=== PATIENT | male | born 1935 | race Caucasian/White ===

== ENCOUNTER 2019-12-13 12:09 | Inpatient (IN) | payer MEDICARE, MEDICAID, SELFPAY ==
[2019-12-13] VITALS (15 sets, daily range): BP systolic 67–107; BP diastolic 40–87; PULSE 75–95; RESP 17–24; TEMP 36.4–37.2; O2SAT 92–99
--- NOTE | ~2019-12-13 | XR_ITS ---
EXAMINATION: XR chest 1V portable EXAM DATE: 12/13/2019 13:50 INDICATION: Hypotension, weakness. TECHNIQUE: Portable AP frontal chest x-ray was obtained. Comparison is made to prior examination from 01/27/2018. FINDINGS: Sternotomy wires are present without findings to suggest sternal dehiscence. The lungs are clear. There are no pleural effusions. There is pulmonary vascular congestion. Cardiac silhouette i s prominent but magnified on this AP technique. There is no pneumothorax suspected. There is aorti c arteriosclerosis. There are bony degenerative changes. IMPRESSION: Pulmonary vascular congestion. Reviewed, dictated and finalized at location A.
--- NOTE | 2019-12-13 12:24 | ECG_ITS ---
Measurements Intervals [place] Rate: 96 P: 61 LA: 230 QRS: 59 QRSD: 88 T: 52 QT: 371 QTc: 469 Interpretive Statements SINUS RHYTHM WITH FIRST DEGREE AV BLOCK BASELINE ARTIFACT- I, II, III, AVR, AVL, AVF, V1-V2, V5-V6 ABNORMAL ECG Electronically Signed On 12-13-2019 14:09:46 CDT by Brenden Linda D.O.
--- NOTE | 2019-12-13 12:30 | PC.NURSE ---
PER LEVI CAST, STAFF IS TO STOP ALL INTERACTION WITH PT UNTIL ERP AL CAN SEE PT.
--- NOTE | 2019-12-13 12:53 | PC.NURSE ---
KATIUSKA NOT SENT FROM [facility]. CALLED FACILITY AT THIS TIME AND SPOKE WITH DEANDRE WHO STATES THAT PT IS ALLERGIC TO MORPHINE.
[2019-12-13] MEDS: HALOPERIDOL LACTATE 5 MG/ML VIAL 2 MG IM (12:56)
--- NOTE | 2019-12-13 13:06 | ED.GENADULT ---
HPI - General Adult General Chief complaint: Weakness Stated complaint: Lethargic, cellulitis bilateral legs Time Seen by Provider: 12/13/19 12:21 History of Present Illness HPI narrative: Patient is a 84 y/o male sent from [place] for right leg redness. It's uncertain how long it has been present. There is no alleviating or exacerbating factor. Patient is hard of hearing and poor historian. He admits that he has right leg pain but he can not elaborate on more details. Related Data Home Medications Medication Instructions Recorded Confirmed acetaminophen 1,000 mg PO TID PRN 04/09/19 atorvastatin 40 mg DAILY 04/09/19 buspirone 5 mg DAILY 04/09/19 buspirone 10 mg HS 04/09/19 donepezil 10 mg HS 04/09/19 metoprolol succinate 25 mg PO DAILY 04/09/19 mirtazapine 7.5 mg DAILY 04/09/19 omeprazole 20 mg PO DAILY 04/09/19 ranolazine 500 mg PO BID 04/09/19 sertraline 25 mg DAILY 04/09/19 sertraline 50 mg DAILY 04/09/19 sucralfate [Carafate] 10 ml AC 04/09/19 Lactobacillus acidophilus 10 mg PO DAILY 12/13/19 albuterol sulfate [ProAir HFA] 1 inh INHALATION QID 12/13/19 ciprofloxacin HCl 500 mg PO Q12H 12/13/19 hydrocortisone 1 applic TOPICAL BID PRN 12/13/19 pantoprazole 40 mg PO DAILY 12/13/19 terbinafine HCl 1 applic TOPICAL BID 12/13/19 tramadol 50 mg PO Q6H PRN 12/13/19 Allergies Allergy/AdvReac Type Severity Reaction Status Date / Time morphine Allergy Unknown Palpitation Verified 12/13/19 12:54 s Review of Systems Review of Systems: ROS unobtainable: Yes unobtainable due to mental status PMFSH Social History Social History Gender identity (if verbalized by the patient): Male Exam Const: General: no acute distress and well developed Orientation/consciousness: oriented to person and confusion HENMT: Head: normocephalic Ears: external ears normal General nose exam: Normal external nose present Eyes: General: appearance normal, both eyes and all related structures Conjunctivae: conjunctivae normal Neck: Neck: normal visual inspection and full ROM Chest: Chest palpation & inspection: normal inspection of the chest and no tenderness Resp: Effort & Inspection: normal respiratory effort Auscultation: clear to auscultation bilaterally Cardio: Rate: regular rate Rhythm: regular rhythm GI: GI Palp: No abdominal tenderness and Yes Soft to palpation Skin: General skin exam: turgor normal and erythema (both legs, right side worse) Neuro: General: oriented to person and oriented to time Cranial nerves: Yes hard of hearing Cognition (Neuro): abnormal cognition Extrem: General: normal to inspection, full ROM and no pedal edema Psych: Appearance: grossly normal Mental Status: mental status grossly normal Affect: normal affect Course Reevaluation(s) Reevaluation #1: Discussed with ex Shelton Sanders, who is POA. She confirms DNR status and does not want any aggressive treatment such as central line and pressor. Date: 12/13/19 Time: 14:33 Consultations Consultation #1: Discussed with GRAIN ELEVATOR WORKER Brigitte, who agrees to admit to Dr. Barajas. Date: 12/13/19 Time: 14:10 Vital Signs Vital signs: Vital Signs Temperature 37.2 C 12/13/19 12:15 Pulse Rate 94 12/13/19 12:15 Respiratory Rate 18 12/13/19 12:15 Blood Pressure 67/40 L 12/13/19 12:15 Pulse Oximetry 92 12/13/19 12:15 Temperature 37.2 C 12/13/19 12:15 Pulse Rate 90 12/13/19 16:45 Respiratory Rate 24 H 12/13/19 16:45 Blood Pressure 98/62 L 12/13/19 16:45 Pulse Oximetry 98 12/13/19 16:45 Medical Decision Making Vital Signs Vital Signs: Vital Signs Temperature 37.2 C 12/13/19 12:15 Pulse Rate 94 12/13/19 12:15 Respiratory Rate 18 12/13/19 12:15 Blood Pressure 67/40 L 12/13/19 12:15 Pulse Oximetry 92 12/13/19 12:15 Temperature 37.2 C 12/13/19 12:15 Pulse Rate 90 12/13/19 16:45 Respiratory Rate 24 H 12/13/19 16:45 Blood Pressure
[2019-12-13 13:09] LABS: Basophils Percent Auto 0.1 % (0.2-1.2); Hematocrit 32.7 % (42.0-52.0); Hemoglobin 10.8 g/dL (14.0-18.0); Immature Granulocyte Absolute 0.14 K/mm3 (0.00-0.031); Immature Granulocyte Percent A 0.8 % (0-0.5); Lymphocytes Absolute Auto 0.61 K/mm3 (0.9-3.2); Lymphocytes Percent Auto 3.7 % (18.3-44.2); Mean Corpuscular Hemoglobin 28.4 pg (26-34); Mean Corpuscular Volume 86.1 fl (80-100); Mean Platelet Volume 9.5 fl (7.4-10.4); Monocytes Absolute Auto 1.3 K/mm3 (0.1-0.6); Monocytes Percent Auto 7.5 % (2.6-8.5); Neutrophils Absolute Auto 14.7 K/mm3 (1.3-6.7); Neutrophils Percent Auto 87.9 % (45.5-73.1); Platelet Count Result 276 k/mm3 (150-375); Red Cell Distribution Width 13.3 % (11.5-14.5); White Blood Count 16.7 K/mm3 (4.5-10.0)
[2019-12-13 13:21] LABS: Lactic Acid Reflex 2.7 mmol/L (0.7-2.1)
[2019-12-13 13:22] LABS: Alanine Aminotransferase 16 U/L (4-50); Albumin Level 3.2 g/dL (3.5-5.1); Alkaline Phosphatase 115 U/L (38-126); Aspartate Amino Transferase 27 U/L (17-59); Bilirubin,Total 0.8 mg/dL (0.2-1.3); Blood Urea Nitrogen 21 mg/dL (9-20); Calcium 8.4 mg/dL (8.4-10.2); Carbon Dioxide 20 mmol/L (22-30); Chloride 104 mmol/L (98-107); Estimated CRCL calculation 45 ml/min; Estimated Glomerular Filt Rate > 60; Glucose 116 mg/dL (75-110); Sodium 133 mmol/L (137-145)
--- NOTE | 2019-12-13 13:36 | PC.NURSE ---
ATTEMPTED TO PLACE SECOND IV, PT AGGRESSIVE AGAIN, SWINGING AT RN. UNSUCCESSFUL.
--- NOTE | 2019-12-13 13:37 | PC.NURSE ---
PT RECIEVED 1L NS FROM EMS, ERP AL STILL WANTS 2400 ML BOLUS.
--- NOTE | 2019-12-13 14:22 | PC.NURSE ---
PT O2 SATURATION NOTED TO BE 86% WHILEE SLEEPING, PLACED ON 2L O2 VIA NC. INCREASED O2 SATURATION TO 94.
[2019-12-13] MEDS: ERTAPENEM 1 GM/NS 50 ML 1 GM/50 ML BAG IVPB (14:24)
--- NOTE | 2019-12-13 14:31 | PC.NURSE ---
SPOKE W/ PT EXWIFE WHO MAKES PT'S MEDICAL DECISIONS, AND IS LISTED PT'S FAMILY CONTACT. ERP SPEAKING W/ PT NOW ABOUT TREATMENT OPTIONS. JOB DEVELOPER FOR [employer] KATHIA AWARE OF PT STATUS AND THAT PT HAS LOW BP AND MAY GET CENTRAL LINE DEPENDING ON WHAT FAMILY DECIDES. AWAITING ORDERS.
[2019-12-13 14:39] LABS: Add Urine Microscopic? NO; Appearance Urine Clear (Clear); Bilirubin Urine Negative (Negative); Blood Urine Negative (Negative); Color Urine Yellow (Yellow); Glucose Urine UA Negative (Negative); Ketones Urine Negative (Negative); Leukocyte Esterase Ur Negative LEU/UL (Negative); Nitrate Urine Negative (Negative); Protein Urine Negative (Negative); Specific Grav Ur 1.013 (1.001-1.035); Urobilinogen Urine Negative mg/dL (<2.0)
--- NOTE | 2019-12-13 14:53 | PC.NURSE ---
PER GAMAL MELENDEZ HE HAS SPOKEN TO FAMILY, MS COUCH, STATES THAT DURING THEIR CONVERSATION SHE DECIDED THAT SHE WANTS ONLY COMFORT FOCUSED TREATMENT AND DOES NOT WANT A CENTRAL LINE PLACED. PER GAMAL MELENDEZ PT CLEARED TO GO TO ICU. ICT SUPPORT TECHNICIANS KATHIA ALEMAN.
[2019-12-13 16:07] LABS: Reflex Lactic Acid Yes or No Add Lactic
--- NOTE | 2019-12-13 17:30 | PC.NURSE ---
This patient, Micah Morrison, was admitted to Intensive Care Unit-5. Patient/family oriented to hospital policies and general routines including ID bracelet, bed and alarms, visiting hours, pain management, procedures, bathroom and other care routines, personal items, smoking policy, room service/diet, and visiting hours. Valuables list has been completed. Information on how to activate the Rapid Response Team has been discussed. Patient/Family are encouraged to report perceived risks to care and to ask questions if they do not understand what they are told or what they should do.
--- NOTE | 2019-12-13 18:27 | PM.IMHP ---
H&P: HPI History of Present Illness Chief complaint: Sepsis/right leg cellulitis Narrative: Micah Morrison is a 84 year old male Who is from [facility]. The patient has a history of dementia. He also looks like he has chronic venous stasis with ulcers. The patient has become more lethargic recently and his legs have become more red. according to the EMS record the patient has been picking at his legs and they started to drain. patient has chronic venous stasis ulcers. Patient's blood pressures were low when he came to the emergency room 67/40, 72/51, 69/56, And72/43. patient is septic. He was started on vancomycin and Primaxin. Although he is not diabetic his blood sugars are elevated. Which prompted the antibiotic choice as mentioned above. The patient is a DNR DNI and the power of civil litigation attorney did not want any vasopressors. The patient was given Haldol, Ativan, lactated Ringer's, vancomycin, and Primaxin. The patient is being admitted to the ICU as IMU overflow and has been screened for COVID 19. Lactic acid is noted to be 2.7. Potassium is low at 3.2. Date of service 12/13/2019 Review of Systems Review of Systems: All systems reviewed & are unremarkable except as noted in HPI and below Constitutional: Constitutional: Reports as per HPI and Reports no additional constitutional complaints Eyes: Eyes: Reports as per HPI and Reports no additional eye complaints ENT: Reports system reviewed and no additional complaints, except as documented and Reports Normal hearing present Cardiovascular: Cardiovascular: Reports no additional cardiovascular complaints Respiratory: Respiratory: Reports no additional respiratory complaints and Reports no additional respiratory complaints Gastrointestinal: Gastrointestinal: Reports as per HPI and Reports no additional gastrointestinal complaints Musculoskeletal: Musculoskeletal: Reports no additional musculoskeletal complaints Integumentary/Breasts: Skin/Breast: Reports system reviewed and no additional complaints, except as docu and Reports as per HPI Neurologic: Reports system reviewed and no additional complaints, except as documented, Reports as per HPI and Reports Normal hearing present Psychiatric: Psychiatric: Reports no additional psychiatric complaints and Reports as per HPI Endocrine: Endocrine: Reports no additional endocrine complaints Hematologic/Lymphatic: Hematologic/Lymphatic: Reports no additional hematologic/lymphatic complaints Allergic/Immunologic: Allergic/Immunologic: Reports no additional allergic/immunologic complaints [facility] Past Medical History Medical History (Updated 12/13/19 @ 18:42 by Brigitte Martines NP) Anemia Anxiety and depression CAD (coronary artery disease) bypass surgery 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 Social History Social History (Updated 12/13/19 @ 18:47 by Brigitte Martines NP) Social History: According to the records the patient was a former smoker he resides at [facility]. Family member stated that the patient is a modified code with DNI. His living well as confusing as it is marked attempt resuscitation CPR but then is also marked as comfort measure treatment. Power civil litigation attorney was contacted per ICU nursing building insulation supervisor and the power civil litigation attorney stated that he is a modified code with a DNI and that she would not allow central line or vasopressors. Savana lomax is noted to be the emergency nascar pit crew person. Smoking status: Never smoker Gender identity (if verbalized by the yesenia
[2019-12-13] MEDS: SODIUM CHLORIDE 0.9% IV 1,000 ML 125 ML IV CONT (20:08)
[2019-12-13] MEDS: ALBUTEROL SULFATE (*SP) INHALER 1 PUFF (20:52)
[2019-12-13] MEDS: ALBUTEROL SULFATE (*SP) AEROSOL 1 PUFF INHALATION (20:53)
[2019-12-14] VITALS (15 sets, daily range): BP systolic 92–140; BP diastolic 33–76; PULSE 69–91; RESP 16–20; TEMP 35.7–37; O2SAT 93–99
[2019-12-14 00:11] LABS: SARS-CoV-2 RNA PCR Negative
--- NOTE | 2019-12-14 02:09 | PC.NURSE ---
Report given to Sadie KEE. Patient to 211. All belongings gathered.
[2019-12-14 04:52] LABS: Basophils Percent Auto 0.2 % (0.2-1.2); Eosinophils Percent Auto 0.4 % (0-4.4); Hematocrit 32.5 % (42.0-52.0); Hemoglobin 10.5 g/dL (14.0-18.0); Immature Granulocyte Absolute 0.06 K/mm3 (0.00-0.031); Immature Granulocyte Percent A 0.5 % (0-0.5); Lymphocytes Absolute Auto 1.21 K/mm3 (0.9-3.2); Lymphocytes Percent Auto 10.7 % (18.3-44.2); Mean Corpuscular HGB Conc 32.3 g/dl (32-36); Mean Corpuscular Hemoglobin 28.2 pg (26-34); Mean Corpuscular Volume 87.1 fl (80-100); Mean Platelet Volume 9.3 fl (7.4-10.4); Monocytes Absolute Auto 0.9 K/mm3 (0.1-0.6); Monocytes Percent Auto 8.3 % (2.6-8.5); Neutrophils Percent Auto 79.9 % (45.5-73.1); Platelet Count Result 269 k/mm3 (150-375); Red Blood Count 3.73 M/mm3 (4.6-6.20); Red Cell Distribution Width 13.2 % (11.5-14.5); White Blood Count 11.3 K/mm3 (4.5-10.0)
[2019-12-14 05:07] LABS: Blood Urea Nitrogen 15 mg/dL (9-20); Calcium 8.6 mg/dL (8.4-10.2); Carbon Dioxide 24 mmol/L (22-30); Chloride 107 mmol/L (98-107); Estimated CRCL calculation 55 ml/min; Estimated Glomerular Filt Rate > 60; Glucose 88 mg/dL (75-110); Potassium 3.7 mmol/L (3.4-5.0); Sodium 136 mmol/L (137-145)
--- NOTE | 2019-12-14 05:24 | PC.NURSE ---
transfered from ICU 5 report from John KEE 12/14/19
[2019-12-14] MEDS: SODIUM CHLORIDE 0.9% IV 1,000 ML 125 ML IV CONT ×2 (05:35→17:07)
[2019-12-14] MEDS: SERTRALINE HCL 25 MG TABLET BY MOUTH (09:40)
[2019-12-14] MEDS: SERTRALINE HCL 50 MG TABLET BY MOUTH (09:40)
[2019-12-14] MEDS: busPIRone HCL 5 MG TABLET BY MOUTH (09:40)
[2019-12-14] MEDS: PANTOPRAZOLE 40 MG TABLET PO (09:40)
[2019-12-14] MEDS: RANOLAZINE 500 MG TAB.ER.12H PO ×2 (09:40→17:08)
[2019-12-14] MEDS: MIRTAZAPINE 7.5 MG TABLET BY MOUTH (09:40)
[2019-12-14] MEDS: SILVERGEL (ELTA) 45 ML 1 APPLIC TOPICAL (13:20)
--- NOTE | 2019-12-14 17:31 | PM.IMPN ---
Progress Note: A&P Assessment and Plan (1) Sepsis: Qualifiers: Sepsis acute organ dysfunction status: with acute organ dysfunction Sepsis type: sepsis due to unspecified organism Severe sepsis shock status: with septic shock Code(s): A41.9 - Sepsis, unspecified organism Status: Acute Assessment and Plan: Patient with sepsis with shock on presentation with elevated lactic acid. Pressors held due to family request. BP was responsive to IV fluids. Decrease the IVF rate but continue to monitor. If remains stable, will more out of IMU tomorrow. (2) Cellulitis: Qualifiers: Laterality: unspecified laterality Site of cellulitis: extremity Site of cellulitis of extremity: lower extremity Qualified Code(s): L03.119 - Cellulitis of unspecified part of limb Code(s): L03.90 - Cellulitis, unspecified Status: Chronic Assessment and Plan: [place] patient with sepsis with shock from lower extremitiy cellulitis. He was started on Primaxin and vancomycin. Blood cultures NGTD. Continue dressing changes. (3) Hypertension: Qualifiers: Hypertension type: essential hypertension Qualified Code(s): I10 - Essential (primary) hypertension Code(s): I10 - Essential (primary) hypertension Status: Chronic Assessment and Plan: BP was 67/40 on admission and was responsive to IV fluids. Family did not want pressors. BP has improved. Metoprolol placed on hold. Continue to monitor. Will decrease IVF. (4) Dementia: Qualifiers: Dementia behavioral disturbance: with behavioral disturbance Dementia type: unspecified type Qualified Code(s): F03.91 - Unspecified dementia with behavioral disturbance Code(s): F03.90 - Unspecified dementia without behavioral disturbance Status: Chronic Assessment and Plan: Stable. Continue with donepezil. (5) Anxiety and depression: Code(s): F41.9 - Anxiety disorder, unspecified; F32.9 - Major depressive disorder, single episode, unspecified Status: Chronic Assessment and Plan: Patient was given Haldol and Ativan in the emergency room. Sertraline, Remeron and Buspar resumed. Mood stable. Continue to monitor. (6) Anemia: Qualifiers: Anemia type: unspecified type Qualified Code(s): D64.9 - Anemia, unspecified Code(s): D64.9 - Anemia, unspecified Status: Chronic Assessment and Plan: Hgb 10 and stable. Continue to monitor. (7) Hyperlipidemia: Qualifiers: Hyperlipidemia type: unspecified Qualified Code(s): E78.5 - Hyperlipidemia, unspecified Code(s): E78.5 - Hyperlipidemia, unspecified Status: Chronic Assessment and Plan: LFTs okay. Will resume atorvastatin. (8) Suspected COVID-19 virus infection: Code(s): Z20.828 - Contact with and (suspected) exposure to other viral communicable diseases Status: Acute Assessment and Plan: COVID negative. Subjective Date/time seen: 12/14/19 17:31 Interval history: 84yo male with dementia here for cellulitis. Assuming care. Chest reviewed. Patient alert but confused and thus unable to provide history. No issues per RN. Exam Narrative: Exam Narrative: AF 131/69 80 16 93% ra Gen - NARD Chest - CTA bilaterally, nml RR CV - RRR S1/S2; Tele showing PVCs. Abd - soft, NT, +BS Ext - no pedal edema Neuro - alert, confused Skin - dressing clean and dry bilateral shins Objective Data Vital Signs Vital Signs: Vital Signs - 24 hr 12/13/19 18:00 12/13/19 20:00 12/13/19 20:56 Temperature Pulse Rate 80 90 87 Respiratory Rate 18 19 20 Blood Pressure 82/40 L 107/87 Pulse Oximetry 99 97 12/13/19 22:00 12/14/19 00:00 12/14/19 02:00 Temperature 98.6 F Pulse Rate 75 73 78 Respiratory Rate 18 Blood Pressure 92/33 L Pulse Oximetry 97 98 12/14/19 04:00 12/14/19 06:00 12/14/19 06:54 Temperature
[2019-12-14] MEDS: DONEPEZIL HCL 10 MG TABLET BY MOUTH (20:00)
[2019-12-14] MEDS: busPIRone HCL 10 MG TABLET BY MOUTH (20:00)
[2019-12-14] MEDS: ALBUTEROL SULFATE (*SP) AEROSOL 1 PUFF INHALATION (21:02)
[2019-12-15] VITALS (16 sets, daily range): BP systolic 106–126; BP diastolic 51–68; PULSE 63–109; RESP 16–20; TEMP 36–37.1; O2SAT 94–97
[2019-12-15 04:43] LABS: Hematocrit 32.4 % (42.0-52.0); Hemoglobin 10.6 g/dL (14.0-18.0); Mean Corpuscular HGB Conc 32.7 g/dl (32-36); Mean Corpuscular Hemoglobin 28.2 pg (26-34); Mean Corpuscular Volume 86.2 fl (80-100); Mean Platelet Volume 9.2 fl (7.4-10.4); Platelet Count Result 294 k/mm3 (150-375); Red Blood Count 3.76 M/mm3 (4.6-6.20); White Blood Count 7.3 K/mm3 (4.5-10.0)
[2019-12-15 04:55] LABS: Albumin Level 2.8 g/dL (3.5-5.1); Blood Urea Nitrogen 14 mg/dL (9-20); Calcium 8.3 mg/dL (8.4-10.2); Carbon Dioxide 22 mmol/L (22-30); Chloride 111 mmol/L (98-107); Estimated CRCL calculation 69 ml/min; Estimated Glomerular Filt Rate > 60; Glucose 86 mg/dL (75-110); Magnesium 2.1 mg/dL (1.6-2.3); Phosphorus 2.5 mg/dL (2.5-4.5); Potassium 3.7 mmol/L (3.4-5.0); Sodium 138 mmol/L (137-145)
[2019-12-15 05:59] LABS: Folic Acid 10.4 ng/mL (2.76->20)
[2019-12-15] MEDS: ALBUTEROL SULFATE (*SP) AEROSOL 1 PUFF INHALATION ×4 (09:39→20:27)
[2019-12-15] MEDS: RANOLAZINE 500 MG TAB.ER.12H PO ×2 (09:52→18:22)
[2019-12-15] MEDS: MIRTAZAPINE 7.5 MG TABLET BY MOUTH (09:52)
[2019-12-15] MEDS: PANTOPRAZOLE 40 MG TABLET PO (09:52)
[2019-12-15] MEDS: busPIRone HCL 5 MG TABLET BY MOUTH (09:52)
[2019-12-15] MEDS: SERTRALINE HCL 50 MG TABLET BY MOUTH (09:53)
[2019-12-15] MEDS: SERTRALINE HCL 25 MG TABLET BY MOUTH (09:53)
[2019-12-15] MEDS: SILVERGEL (ELTA) 45 ML 1 APPLIC TOPICAL (09:54)
--- NOTE | 2019-12-15 10:11 | PM.IMPN ---
Progress Note: A&P Assessment and Plan (1) Sepsis: Qualifiers: Sepsis acute organ dysfunction status: with acute organ dysfunction Sepsis type: sepsis due to unspecified organism Severe sepsis shock status: with septic shock Code(s): A41.9 - Sepsis, unspecified organism Status: Acute Assessment and Plan: Patient with sepsis with shock on presentation with elevated lactic acid. Pressors held due to family request. BP was responsive to IV fluids. Patient remained stable. Ok to move out of IMU (2) Cellulitis: Qualifiers: Site of cellulitis: extremity Site of cellulitis of extremity: lower extremity Laterality: unspecified laterality Qualified Code(s): L03.119 - Cellulitis of unspecified part of limb Code(s): L03.90 - Cellulitis, unspecified Status: Chronic Assessment and Plan: [place] patient with sepsis with shock from lower extremity cellulitis. He was started on Primaxin and vancomycin. WBC normal now. Blood cultures NGTD. Continue dressing changes. Deescalate antibiotics. (3) Hypertension: Qualifiers: Hypertension type: essential hypertension Qualified Code(s): I10 - Essential (primary) hypertension Code(s): I10 - Essential (primary) hypertension Status: Chronic Assessment and Plan: BP was 67/40 on admission and was responsive to IV fluids. Family did not want pressors. Metoprolol placed on hold. BP has improved and remains stable. Continue to monitor. Will stop IVF. (4) Dementia: Qualifiers: Dementia type: unspecified type Dementia behavioral disturbance: with behavioral disturbance Qualified Code(s): F03.91 - Unspecified dementia with behavioral disturbance Code(s): F03.90 - Unspecified dementia without behavioral disturbance Status: Chronic Assessment and Plan: Stable. Continue with donepezil. (5) Anxiety and depression: Code(s): F41.9 - Anxiety disorder, unspecified; F32.9 - Major depressive disorder, single episode, unspecified Status: Chronic Assessment and Plan: Patient was given Haldol and Ativan in the emergency room. Sertraline, Remeron and Buspar have been resumed. Mood stable and he is remaining calm. Continue to monitor. (6) Anemia: Qualifiers: Anemia type: unspecified type Qualified Code(s): D64.9 - Anemia, unspecified Code(s): D64.9 - Anemia, unspecified Status: Chronic Assessment and Plan: Hgb 10 and stable. Continue to monitor periodically. (7) Hyperlipidemia: Qualifiers: Hyperlipidemia type: unspecified Qualified Code(s): E78.5 - Hyperlipidemia, unspecified Code(s): E78.5 - Hyperlipidemia, unspecified Status: Chronic Assessment and Plan: LFTs okay. Continue atorvastatin. (8) Suspected COVID-19 virus infection: Code(s): Z20.828 - Contact with and (suspected) exposure to other viral communicable diseases Status: Acute Assessment and Plan: COVID negative. Subjective Date/time seen: 12/15/19 10:11 Interval history: 84yo male with dementia here for cellulitis. Patient has remove multiple IVs overnight. No issues overnight otherwise per RN. Patient is alert but confused and unable to provide history Review of Systems Review of Systems: ROS unobtainable: Yes unobtainable due to mental status Exam Narrative: Exam Narrative: AF 121/58 104 20 95% ra Gen - NARD Chest - CTA bilaterally, nml RR CV - RRR S1/S2; Tele showing no significnat dysrhythmias Abd - soft, NT/ND, +BS Ext - no pedal edema Neuro - alert, confused Skin - 2 shallow ulcers noted right anterior rollins and one posterior calf with surrounding pink erythema. Left shiwn with small shallow ulcers and dried escar posteriorly with minimal surrounding erythema Objective Data Vital Signs Vital Signs: Vital Signs - 24 hr 12/14/19 12:00 12/14/19 14:00
[2019-12-15] MEDS: ATORVASTATIN 20 MG TABLET PO (14:14)
[2019-12-15] MEDS: DONEPEZIL HCL 10 MG TABLET BY MOUTH (22:16)
[2019-12-15] MEDS: busPIRone HCL 10 MG TABLET BY MOUTH (22:16)
[2019-12-16] VITALS (9 sets, daily range): BP systolic 120–133; BP diastolic 72–75; PULSE 65–86; RESP 18–20; TEMP 35.8–36.4; O2SAT 96–99
[2019-12-16 05:11] LABS: Estimated CRCL calculation 61 ml/min; Estimated Glomerular Filt Rate > 60
[2019-12-16] MEDS: ALBUTEROL SULFATE (*SP) AEROSOL 1 PUFF INHALATION ×3 (08:57→17:32)
[2019-12-16 09:09] LABS: Vancomycin Trough 8.4 ug/mL (10.0-20.0)
[2019-12-16] MEDS: PANTOPRAZOLE 40 MG TABLET PO (09:30)
[2019-12-16] MEDS: busPIRone HCL 5 MG TABLET BY MOUTH (09:30)
[2019-12-16] MEDS: SERTRALINE HCL 25 MG TABLET BY MOUTH (09:30)
[2019-12-16] MEDS: RANOLAZINE 500 MG TAB.ER.12H PO (09:30)
[2019-12-16] MEDS: SERTRALINE HCL 50 MG TABLET BY MOUTH (09:30)
[2019-12-16] MEDS: MIRTAZAPINE 7.5 MG TABLET BY MOUTH (09:30)
[2019-12-16] MEDS: ATORVASTATIN 20 MG TABLET PO (09:30)
[2019-12-16] MEDS: METOPROLOL SUCCINATE EXT REL 25 MG TABCR PO (09:31)
[2019-12-16] MEDS: SILVERGEL (ELTA) 45 ML 1 APPLIC TOPICAL (09:31)
--- NOTE | 2019-12-16 15:15 | PM.DS ---
DS: Admitting Diagnosis Admitting Diagnosis Admitting Diagnosis: Sepsis, unspecified organism DS: Discharge Diagnosis Discharge Diagnosis (1) Sepsis: Qualifiers: Sepsis acute organ dysfunction status: with acute organ dysfunction Sepsis type: sepsis due to unspecified organism Severe sepsis shock status: with septic shock Code(s): A41.9 - Sepsis, unspecified organism Status: Acute Assessment and Plan: Patient with sepsis with shock on presentation with elevated lactic acid and WBC. Pressors held due to family request. BP was responsive to IV fluids. Patient admitted to the IMU. He remained stable and IV fluids able to be stopped. (2) Cellulitis: Qualifiers: Site of cellulitis: extremity Site of cellulitis of extremity: lower extremity Laterality: unspecified laterality Qualified Code(s): L03.119 - Cellulitis of unspecified part of limb Code(s): L03.90 - Cellulitis, unspecified Status: Chronic Assessment and Plan: [place] patient with sepsis with shock from lower extremity cellulitis. WBC 16.7. He was started on Primaxin and vancomycin. WBC normalized. Blood cultures NGTD. We deescalated antibiotics. He remained stable. Okay for discharge. (3) Hypertension: Qualifiers: Hypertension type: essential hypertension Qualified Code(s): I10 - Essential (primary) hypertension Code(s): I10 - Essential (primary) hypertension Status: Chronic Assessment and Plan: BP was 67/40 on admission that was responsive to IV fluids. Family did not want pressors. Metoprolol placed on hold. BP improved and remained stable. IV fluids stopped and able to resume Metoprolol. (4) Dementia: Qualifiers: Dementia type: unspecified type Dementia behavioral disturbance: with behavioral disturbance Qualified Code(s): F03.91 - Unspecified dementia with behavioral disturbance Code(s): F03.90 - Unspecified dementia without behavioral disturbance Status: Chronic Assessment and Plan: Stable. We continued donepezil. (5) Anxiety and depression: Code(s): F41.9 - Anxiety disorder, unspecified; F32.9 - Major depressive disorder, single episode, unspecified Status: Chronic Assessment and Plan: Patient was given Haldol and Ativan in the emergency room due to agitation. Sertraline, Remeron and Buspar were resumed. In the IMU, his mood remained stable and he remained calm. (6) Anemia: Qualifiers: Anemia type: unspecified type Qualified Code(s): D64.9 - Anemia, unspecified Code(s): D64.9 - Anemia, unspecified Status: Chronic Assessment and Plan: Hgb 10 and stable. (7) Hyperlipidemia: Qualifiers: Hyperlipidemia type: unspecified Qualified Code(s): E78.5 - Hyperlipidemia, unspecified Code(s): E78.5 - Hyperlipidemia, unspecified Status: Chronic Assessment and Plan: LFTs okay. We continued atorvastatin. (8) Suspected COVID-19 virus infection: Code(s): Z20.828 - Contact with and (suspected) exposure to other viral communicable diseases Status: Acute Assessment and Plan: COVID negative. DS: Summary Hospital Course Reason for hospitalization: 84yo male with dementia here for sepsis with shock. Please see H&P for details Hospital Course: As above Time Spent with Patient Time attestation: Total time spent providing and/or coordinating discharge services:32 minutes Time spent: Greater than 30 minutes Specific discharge activities: Patient seen and examined. Preparing medical record. Family called and message left. Exam Narrative: Exam Narrative: AF 131/73 79 18 98% ra Gen - NARD Chest - CTA bilaterally, nml RR CV - RRR S1/S2 Abd - soft, NT/ND, +BS Ext - no pedal edema Neuro - alert, confused Skin - pink erythema to the right rollins. Quarter sized shallow ulcer left rollins and right calf.
== END 2019-12-16 18:30 | DRG 871 ==
LOC: ANHED 14:17 → ANHICU 15:27 → ANHIMU 12-14 03:40 → ANHICU 12-20 17:36 → ANHIMU 12-20 17:36
PROVIDERS: Nurse Practitioner; Admitting Provider Internal Medicine; Emergency Provider Emergency Medicine; PCP Internal Medicine; Visit Provider Internal Medicine
DX: A41.9 Sepsis, unspecified organism (principal); R65.21 Severe sepsis with septic shock; L03.119 Cellulitis of unspecified part of limb; L97.929 Non-pressure chronic ulcer of unspecified part of left lower leg with unspecified severity; L97.919 Non-pressure chronic ulcer of unspecified part of right lower leg with unspecified severity; I10 Essential (primary) hypertension; F03.90 Unspecified dementia, unspecified severity, without behavioral disturbance, psychotic disturbance, mood disturbance, and anxiety; F41.9 Anxiety disorder, unspecified; D64.9 Anemia, unspecified; E78.5 Hyperlipidemia, unspecified; Z20.828 Contact with and (suspected) exposure to other viral communicable diseases; I87.8 Other specified disorders of veins; Z95.1 Presence of aortocoronary bypass graft; Z66 Do not resuscitate; F32.9 Major depressive disorder, single episode, unspecified; I25.10 Atherosclerotic heart disease of native coronary artery without angina pectoris; Z87.891 Personal history of nicotine dependence
CPT/HCPCS: 36415; 51701; 71045; 80048; 80053; 80069; 80202; 81003; 82565; 82607; 82746; 83605; 83735; 84443; 85025; 85027; 87040; 87635; 93005; 94640; 96365; 96372; 99285; A9270; C9803; J0690; J0743; J1335; J1630; J2060; J3370; J7030; J7120; U0003